=== PATIENT | female | born 1970 | race Caucasian/White ===

== ENCOUNTER 2022-06-29 11:00 | Emergency (ER) | payer BC, MEDICAID, OTHER ==
[~2022-06-29] VITALS: Ht 154.9 cm; Wt 88.6 kg
[~2022-06-29 11:00] MED LIST: IBUP-1689 PO
[2022-06-29] MEDS ORDERED: ESCI10 PO (11:07)
[2022-06-29 11:34] VITALS: BP 122/75
[2022-06-29] MEDS ORDERED: MECLIZINE HCL 25 MG TABLET PO ONE (12:45)
[2022-06-29] MEDS ORDERED: ACETAMINOPHEN 325 MG TABLET PO ONE (12:45)
== END 2022-06-29 14:39 | disposition left against medical advice (07) ==
LOC: EMS 11:26
DX: R42 Dizziness and giddiness (principal); R11.0 Nausea; M54.50 Low back pain, unspecified; Z88.8 Allergy status to other drugs, medicaments and biological substances; Z90.710 Acquired absence of both cervix and uterus
CPT/HCPCS: 71046; 93005; 99283; 36415-L1; 36415-TC